=== PATIENT | male | born 1975 | race Caucasian/White ===

== ENCOUNTER 2021-05-11 19:22 | Emergency (ER) | payer SELFPAY ==
[~2021-05-11] VITALS: Ht 180.3 cm; Wt 82.0 kg
[2021-05-11 19:50] LABS: HEMATOCRIT 48.6 % (39.0-50.0); HEMOGLOBIN 16.4 g/dl (14.0-18.0); IMMATURE GRANULOCYTES 0.1 % (0.0-5.0); MEAN CELL VOLUME 100.8 fL CALC (80.0-100.0); MEAN CORPUSCULAR HGB CONC 33.7 g/dL CAL (32.0-36.0); NEUT# 3.04 thou/uL (1.82-7.42); RED BLOOD COUNT 4.82 mill/uL (4.70-6.10); RED CELL DISTRI WIDTH 12.9 % (11.5-15.5)
[2021-05-11 20:09] LABS: ALBUMIN 4.7 g/dL (3.2-5.0); ALKALINE PHOSPHATASE 109 u/l (38-126); ANION GAP 20 (6-22 (CALC)); BILIRUBIN, TOTAL 0.6 mg/dL (0.0-1.4); BUN 6 mg/dL (9-20); BUN/CREATININE RATIO 6 (12-20 (CALC)); CARBON DIOXIDE 20 mmol/l (22-30); CHLORIDE 101 mmol/l (95-108); GFR > 60 ML/MIN (>=60 (CALC)); GFR FOR AFR.AMER. > 60 ML/MIN (>=60 (CALC)); POTASSIUM 3.6 mmol/l (3.5-5.1); SGOT/AST 88 u/l (17-59); SODIUM 138 mmol/l (137-146); TOTAL PROTEIN 8.6 g/dL (6.3-8.2)
[2021-05-11 20:20] LABS: MYOGLOBIN 38 ng/mL (0 - 121)
[2021-05-11 20:34] LABS: URINE BILIRUBIN - DIPSTICK NEGATIVE (NEGATIVE); URINE BLOOD DIPSTICK NEGATIVE (NEGATIVE); URINE COLOR YELLOW; URINE GLUCOSE - DIPSTICK NEGATIVE (NEGATIVE); URINE KETONE NEGATIVE (NEGATIVE); URINE LEUK ESTERASE NEGATIVE (NEGATIVE); URINE PROTEIN - DIPSTICK NEGATIVE (NEG-TRACE); URINE SPECIFIC GRAVITY <=1.005; URINE UROBILINOGEN - DIPSTICK 0.2 E.U./dL (0.2)
[2021-05-11 20:35] LABS: URINE NITRITE - DIPSTICK NEGATIVE (Negative)
[2021-05-11] MEDS ORDERED: PREVACID30 M3 PO (22:12)
[2021-05-11 22:19] VITALS: BP 115/92
== END 2021-05-11 22:25 | disposition home or self-care (01) | DRG 897 ==
LOC: ED 19:22
PROVIDERS: Emergency Medicine
DX: F10.129 Alcohol abuse with intoxication, unspecified (principal)

== ENCOUNTER 2022-12-25 19:02 | Emergency (ER) | payer OTHER ==
[~2022-12-25] VITALS: Ht 180.3 cm; Wt 99.0 kg
[~2022-12-25 19:02] MED LIST: PREVACID30 M3 PO
[2022-12-25 19:09] VITALS: BP 116/69
[2022-12-25 19:16] VITALS: BP 107/61
[2022-12-25 19:30] VITALS: BP 101/61
[2022-12-25 19:32] LABS: BASO% 0.4 % (0-3); HEMATOCRIT 45.6 % (39.0-50.0); HEMOGLOBIN 15.2 g/dl (14.0-18.0); IMMATURE GRANULOCYTES 0.2 % (0.0-5.0); LYMPH% 40.9 % (15-41); MEAN CELL VOLUME 100.2 fL CALC (80.0-100.0); MEAN CORPUSCULAR HGB 33.4 pG CALC (26.0-32.0); MEAN CORPUSCULAR HGB CONC 33.3 g/dL CAL (32.0-36.0); MONO% 14.1 % (2-13); NEUT# 2.16 thou/uL (1.82-7.42); NEUT% 42.4 % (42-76); RED BLOOD COUNT 4.55 mill/uL (4.70-6.10)
[2022-12-25 19:42] LABS: ALBUMIN 4.6 g/dL (3.2-5.0); ALKALINE PHOSPHATASE 71 u/l (38-126); BUN 10 mg/dL (9-20); BUN/CREATININE RATIO 14 (12-20 (CALC)); CARBON DIOXIDE 21 mmol/l (22-30); CHLORIDE 113 mmol/l (95-108); CREATININE 0.8 mg/dL (0.7-1.3); GFR FOR AFR.AMER. > 60 ML/MIN (>=60 (CALC)); GFR OTHER RACES > 60 ML/MIN (>=60 (CALC)); MAGNESIUM 1.9 mg/dL (1.6-2.3); POTASSIUM 3.9 mmol/l (3.5-5.1); SGOT/AST 49 u/l (17-59); TOTAL PROTEIN 7.9 g/dL (6.3-8.2)
[2022-12-25 20:07] LABS: ANION GAP 17 (6-22 (CALC)); SODIUM 147 mmol/l (137-146)
[2022-12-25 20:08] LABS: BILIRUBIN, TOTAL 0.1 mg/dL (0.2-1.3); ETHYL ALCOHOL 446 mg/dl (0-30)
[2022-12-25 20:54] LABS: URINE BILIRUBIN - DIPSTICK NEGATIVE (NEGATIVE); URINE BLOOD DIPSTICK TRACE-INTACT (NEGATIVE); URINE COLOR YELLOW; URINE GLUCOSE - DIPSTICK NEGATIVE (NEGATIVE); URINE KETONE NEGATIVE (NEGATIVE); URINE LEUK ESTERASE NEGATIVE (NEGATIVE); URINE PH 5.5 (4.5-8.0); URINE PROTEIN - DIPSTICK TRACE mg/dL (NEG-TRACE); URINE SPECIFIC GRAVITY <=1.005; URINE UROBILINOGEN - DIPSTICK 0.2 E.U./dL (0.2)
[2022-12-25 20:59] LABS: URINE NITRITE - DIPSTICK NEGATIVE (Negative)
[2022-12-26 02:40] VITALS: BP 101/61
== END 2022-12-26 02:40 | DRG 897 ==
LOC: ED 19:02
PROVIDERS: Family Medicine
DX: F10.129 Alcohol abuse with intoxication, unspecified (principal); Y90.8 Blood alcohol level of 240 mg/100 ml or more; F17.210 Nicotine dependence, cigarettes, uncomplicated

== ENCOUNTER 2023-01-05 22:02 | Emergency (ER) | payer OTHER ==
[~2023-01-05] VITALS: Ht 180.3 cm; Wt 86.0 kg
[2023-01-05 22:08] VITALS: BP 131/92
[2023-01-05 22:16] VITALS: BP 130/90
[2023-01-05 22:30] VITALS: BP 129/92
[2023-01-05 22:45] VITALS: BP 133/94
[2023-01-05 22:53] LABS: BASO% 0.2 % (0-3); EOS% 2.8 % (0-8); HEMOGLOBIN 15.4 g/dl (14.0-18.0); IMMATURE GRANULOCYTES 0.2 % (0.0-5.0); LYMPH% 37.5 % (15-41); MEAN CORPUSCULAR HGB 33.5 pG CALC (26.0-32.0); MEAN CORPUSCULAR HGB CONC 33.5 g/dL CAL (32.0-36.0); MONO% 9.1 % (2-13); NEUT# 2.72 thou/uL (1.82-7.42); NEUT% 50.2 % (42-76); RED BLOOD COUNT 4.6 mill/uL (4.70-6.10); RED CELL DISTRI WIDTH 13.9 % (11.5-15.5)
[2023-01-05 23:00] VITALS: BP 118/82
[2023-01-05 23:10] LABS: ALBUMIN 4.5 g/dL (3.2-5.0); ALKALINE PHOSPHATASE 66 u/l (38-126); BUN 8 mg/dL (9-20); BUN/CREATININE RATIO 12 (12-20 (CALC)); CHLORIDE 105 mmol/l (95-108); CREATININE 0.7 mg/dL (0.7-1.3); GFR FOR AFR.AMER. > 60 ML/MIN (>=60 (CALC)); GFR OTHER RACES > 60 ML/MIN (>=60 (CALC)); POTASSIUM 3.9 mmol/l (3.5-5.1); SODIUM 143 mmol/l (137-146); TOTAL PROTEIN 7.5 g/dL (6.3-8.2)
[2023-01-05 23:15] VITALS: BP 127/89
[2023-01-05 23:16] LABS: ANION GAP 15 (6-22 (CALC)); BILIRUBIN, TOTAL 0.4 mg/dL (0.2-1.3); CARBON DIOXIDE 27 mmol/l (22-30); SGOT/AST 96 u/l (17-59)
[2023-01-05 23:32] LABS: ETHYL ALCOHOL 476 mg/dl (0-30)
[2023-01-06] VITALS (32 sets, daily range): BP systolic 104–129; BP diastolic 66–95
== END 2023-01-06 07:55 | disposition home or self-care (01) | DRG 897 ==
LOC: ED 22:02
PROVIDERS: Emergency Medicine
DX: F10.129 Alcohol abuse with intoxication, unspecified (principal); Y90.8 Blood alcohol level of 240 mg/100 ml or more; F17.210 Nicotine dependence, cigarettes, uncomplicated

== ENCOUNTER 2023-03-14 13:07 | Emergency (ER) | payer SELFPAY ==
[2023-03-14] VITALS (11 sets, daily range): BP systolic 106–125; BP diastolic 47–90
[~2023-03-14] VITALS: Ht 180.3 cm; Wt 84.0 kg
[2023-03-14 13:50] LABS: BASO% 0.3 % (0-3); EOS% 0.5 % (0-8); HEMATOCRIT 41.1 % (39.0-50.0); HEMOGLOBIN 14.2 g/dl (14.0-18.0); IMMATURE GRANULOCYTES 0.3 % (0.0-5.0); MEAN CELL VOLUME 98.8 fL CALC (80.0-100.0); MEAN CORPUSCULAR HGB 34.1 pG CALC (26.0-32.0); MEAN CORPUSCULAR HGB CONC 34.5 g/dL CAL (32.0-36.0); MONO% 12.7 % (2-13); NEUT# 3.28 thou/uL (1.82-7.42); NEUT% 57.2 % (42-76); RED BLOOD COUNT 4.16 mill/uL (4.70-6.10); RED CELL DISTRI WIDTH 14.2 % (11.5-15.5)
[2023-03-14 14:04] LABS: ALBUMIN 4.3 g/dL (3.2-5.0); ANION GAP 18 (6-22 (CALC)); BILIRUBIN, TOTAL 0.5 mg/dL (0.2-1.3); BUN 6 mg/dL (9-20); BUN/CREATININE RATIO 11 (12-20 (CALC)); CARBON DIOXIDE 24 mmol/l (22-30); CHLORIDE 106 mmol/l (95-108); CREATININE 0.6 mg/dL (0.7-1.3); GFR FOR AFR.AMER. > 60 ML/MIN (>=60 (CALC)); GFR OTHER RACES > 60 ML/MIN (>=60 (CALC)); POTASSIUM 3.6 mmol/l (3.5-5.1); SODIUM 144 mmol/l (137-146); TOTAL PROTEIN 6.9 g/dL (6.3-8.2)
[2023-03-14 14:13] LABS: ALKALINE PHOSPHATASE 125 u/l (38-126); SGOT/AST 273 u/l (17-59)
[2023-03-14 14:14] LABS: ETHYL ALCOHOL 580 mg/dl (0-30)
== END 2023-03-14 21:26 | disposition home or self-care (01) | DRG 897 ==
LOC: ED 13:07
PROVIDERS: Family Medicine
DX: F10.129 Alcohol abuse with intoxication, unspecified (principal); Y90.8 Blood alcohol level of 240 mg/100 ml or more; F17.200 Nicotine dependence, unspecified, uncomplicated

== ENCOUNTER 2023-03-20 18:29 | Observation (INO) | payer SELFPAY ==
[2023-03-20] VITALS (20 sets, daily range): BP systolic 105–138; BP diastolic 56–92
[~2023-03-20] VITALS: Ht 180.3 cm; Wt 86.0 kg
--- NOTE | 2023-03-20 18:34 | NUR ---
PATIENT TO ROOM 12 VIA EMS
[2023-03-20 19:08] LABS: BASO% 0.4 % (0-3); EOS% 0.4 % (0-8); HEMATOCRIT 38.6 % (39.0-50.0); HEMOGLOBIN 12.9 g/dl (14.0-18.0); IMMATURE GRANULOCYTES 0.2 % (0.0-5.0); LYMPH% 26.1 % (15-41); MEAN CELL VOLUME 99.7 fL CALC (80.0-100.0); MEAN CORPUSCULAR HGB 33.3 pG CALC (26.0-32.0); MEAN CORPUSCULAR HGB CONC 33.4 g/dL CAL (32.0-36.0); MONO% 14.3 % (2-13); NEUT# 3.2 thou/uL (1.82-7.42); NEUT% 58.6 % (42-76); RED BLOOD COUNT 3.87 mill/uL (4.70-6.10); RED CELL DISTRI WIDTH 14.8 % (11.5-15.5)
[2023-03-20 19:18] LABS: ALBUMIN 4.4 g/dL (3.2-5.0); ALKALINE PHOSPHATASE 146 u/l (38-126); ANION GAP 14 (6-22 (CALC)); BILIRUBIN, TOTAL 0.5 mg/dL (0.2-1.3); BUN 6 mg/dL (9-20); BUN/CREATININE RATIO 9 (12-20 (CALC)); CARBON DIOXIDE 26 mmol/l (22-30); CHLORIDE 108 mmol/l (95-108); CREATININE 0.6 mg/dL (0.7-1.3); GFR FOR AFR.AMER. > 60 ML/MIN (>=60 (CALC)); GFR OTHER RACES > 60 ML/MIN (>=60 (CALC)); POTASSIUM 3.3 mmol/l (3.5-5.1); SGOT/AST 155 u/l (17-59); SODIUM 145 mmol/l (137-146); TOTAL PROTEIN 7.6 g/dL (6.3-8.2)
--- NOTE | 2023-03-20 19:27 | NUR ---
PATIENT IS INTOXICATED BUT COOPERATIVE WITH STAFF. PATIENT FELL AND INJURED HIS LEFT KNEE. BANANA BAG INFUSING AT THIS TIME. P-ATIENT IS IN NO DISTRESS.
[2023-03-20 19:28] LABS: ETHYL ALCOHOL 412 mg/dl (0-30)
--- NOTE | 2023-03-20 20:21 | NUR ---
PATIENT EATING AND TAKING IN FLUIDS. BANANA BAG COMPLETED. PATIENT RESTING.
--- NOTE | 2023-03-20 21:15 | NUR ---
BANANA BAG COMPLETED. SECOND LITER OF IVF INITIATED. PATIENT IN NO DISTRESS.
--- NOTE | 2023-03-20 22:00 | NUR ---
FEDERICO CARROLL GIVEN VERBAL REPORT O0N PATIENT. SHE ASSUMES CARE OF THE PATIENT AT THIS TIME.
--- NOTE | 2023-03-20 23:00 | NUR ---
Reassessment of patient completed. No distress noted.
[2023-03-21] VITALS (55 sets, daily range): BP systolic 98–186; BP diastolic 59–115
--- NOTE | 2023-03-21 | NUR ---
Reassessment of patient completed. No distress noted.
--- NOTE | 2023-03-21 01:00 | NUR ---
Reassessment of patient completed. No distress noted.
[2023-03-21 01:54] LABS: URINE BILIRUBIN - DIPSTICK NEGATIVE (NEGATIVE); URINE BLOOD DIPSTICK NEGATIVE (NEGATIVE); URINE COLOR YELLOW; URINE GLUCOSE - DIPSTICK NEGATIVE (NEGATIVE); URINE KETONE NEGATIVE (NEGATIVE); URINE LEUK ESTERASE NEGATIVE (NEGATIVE); URINE PROTEIN - DIPSTICK TRACE mg/dL (NEG-TRACE); URINE SPECIFIC GRAVITY 1.015; URINE UROBILINOGEN - DIPSTICK 0.2 E.U./dL (0.2)
--- NOTE | 2023-03-21 02:00 | NUR ---
Reassessment of patient completed. No distress noted.
[2023-03-21 02:02] LABS: URINE NITRITE - DIPSTICK NEGATIVE (Negative)
--- NOTE | 2023-03-21 03:00 | NUR ---
Reassessment of patient completed. No distress noted.
--- NOTE | 2023-03-21 04:00 | NUR ---
Reassessment of patient completed. No distress noted.
--- NOTE | 2023-03-21 05:00 | NUR ---
Reassessment of patient completed. No distress noted.
--- NOTE | 2023-03-21 06:10 | NUR ---
PATIENT RESTING WITH EYES CLOSED. O2 SAT DOWN IN MID 80S ON RA. MD NOTIFIED. AND ARRIVES AT BEDSIDE FOR RE EVAL. ADDITIONALL TESTING ORDERED. PATIENT AWAKE AND ALERT, DENIES ANY COMPLAINTS AT PRESENT.
--- NOTE | 2023-03-21 06:21 | NUR ---
RESPIRATORY AT BEDSIDE FOR ABG.
--- NOTE | 2023-03-21 07:00 | NUR ---
BEDSIDE REPORT RECIEVED FROM CARLY CABALLERO
--- NOTE | 2023-03-21 07:15 | NUR ---
PATIENTS IV IN THE RAC FOUND OCCLUDED AND THE IV IN THE LEFT HAND NOT PATENT. NEW IV STARTS INITIATED AND CULTURES COLLECTED PRIOR TO IV ABX ADMIN
--- NOTE | 2023-03-21 07:51 | NUR ---
PATIENT RESTING IN BED WATCHING TV. EDUCATED ON PLAN OF CARE AND ABX. HE UNDERSTANDS
--- NOTE | 2023-03-21 08:30 | NUR ---
CRITICAL RESULT OF 378 ALOCHOL LEVEL RECIEVED AND NOTIFIED MD. 2 RN'S CHECKED PATIENTS ROOM AND BELONGINGS. UPON SEARCHING WE FOUND 2 GATORADE BOTTLES CLEAR IN COLOR AND SMELLING OF ALCOHOL. ITEMS REMOVED, EMPTIED AND THROWN AWAY. MD NOTIFIED OF RESULT AND FINDINGS. PATIENT THEN PROVIDED A BREAKFAST TRAY.
--- NOTE | 2023-03-21 10:27 | NUR ---
ASSUMED CARE OF THE PATIENT AT THIS TIME FROM SUHAS CARROLL. PATIENT IS SLEEPING. V/S STABLE.
--- NOTE | 2023-03-21 15:30 | NUR ---
DR LOVELACE CURRENTLY BEDSIDE WITH PATIENT TO DISCUSSE PPOC AND ANSWER QUESTIONS
--- NOTE | 2023-03-21 15:50 | NUR ---
ASSUMED CARE OF THE PT AT THIS TIME
--- NOTE | 2023-03-21 18:00 | NUR ---
RCD REPORT FROM ED. PT AMBULATED FROM WHEELCHAIR TO BED. PT AMBULATES STANDBY ASSIST. ETOH WITHDRAWAL. NO WITHDRAWAL SYMPTOMS AT THE MOMENT. PT ON RA LUNGS ARE CLEAR. ABRASION ON ELBOW AND KNEE LEFT SIDE. PT A/OX3. FOLLOWS COMMANDS. IV ACCESS IN PLACE. NO COMPLAINTS AT THIS TIME
--- NOTE | 2023-03-21 18:02 | NUR ---
Admission Note Report Given to: GELY CARROLL Transported by: Wheelchair Transported with: Senia Romero IV Location: ICU ROOM 8
--- NOTE | 2023-03-21 18:05 | NUR ---
Pt. rechecked post pain med administration. Pain level (1-10): 0 Pain better/worse:
[2023-03-22] VITALS (28 sets, daily range): BP systolic 134–167; BP diastolic 88–112
--- NOTE | 2023-03-22 00:24 | NUR ---
SLEEPING AND COMFORTABLE. MEDICATATED FOR ANXIETY AND ETOH WITHDRAWAL. BP ELEVATED AND MEDICATED FOR IT. MONITORING.
--- NOTE | 2023-03-22 04:13 | NUR ---
SLEPT ON AND OFF THRU THE NITE. HAS TREMORS AND STATES THAT HE IS ANXIOUS. MEDICATED FOR IT. ALERT AND ORIENTED X 3. URINE OUTPUT WITHIN NORMAL LIMITS. BP SLIGHTLY ELEVATED AND HAS BEING MEDICATED FOR IT.
[2023-03-22 04:22] LABS: HEMATOCRIT 36.7 % (39.0-50.0); HEMOGLOBIN 12.5 g/dl (14.0-18.0); MEAN CELL VOLUME 99.5 fL CALC (80.0-100.0); MEAN CORPUSCULAR HGB 33.9 pG CALC (26.0-32.0); MEAN CORPUSCULAR HGB CONC 34.1 g/dL CAL (32.0-36.0); RED BLOOD COUNT 3.69 mill/uL (4.70-6.10); RED CELL DISTRI WIDTH 14.4 % (11.5-15.5)
[2023-03-22 04:51] LABS: ALBUMIN 3.9 g/dL (3.2-5.0); ALKALINE PHOSPHATASE 168 u/l (38-126); BILIRUBIN, TOTAL 0.7 mg/dL (0.2-1.3); BUN 2 mg/dL (9-20); BUN/CREATININE RATIO 5 (12-20 (CALC)); CARBON DIOXIDE 29 mmol/l (22-30); CHLORIDE 102 mmol/l (95-108); CREATININE 0.5 mg/dL (0.7-1.3); GFR FOR AFR.AMER. > 60 ML/MIN (>=60 (CALC)); GFR OTHER RACES > 60 ML/MIN (>=60 (CALC)); POTASSIUM 3.3 mmol/l (3.5-5.1); SGOT/AST 136 u/l (17-59)
[2023-03-22 05:00] LABS: ANION GAP 8 (6-22 (CALC)); MAGNESIUM 1.3 mg/dL (1.6-2.3); SODIUM 136 mmol/l (137-146)
--- NOTE | 2023-03-22 09:37 | NUR ---
PT SEEN AWAKE, ALERT, TREMOROUS HE SITS IN CHAIR. HE WAS ABLE TO AMBULATE TO BR WITH ASSIST, BM. NO ACUTE DISTRESS, PT PROVIDED ATIVAN AND LIBRIUM PER DTs.
--- NOTE | 2023-03-22 11:04 | NUR ---
PATEINT RESTING IN BED WITH EYES CLOSED. APPEARS TO BE SLEEPING. NO S/S OF PAIN OR DISTRESS. BED IN LOW POSITION WITH UPPER BED RAILS UP AND CALL LIGHT WITHIN REACH.
--- NOTE | 2023-03-22 12:56 | NUR ---
PT WITH DIARRHEA HAS BEEN AMBULATED TO BR AND CLEANED NEEDED. PT PROVIDED LIBRIUM AND ATIVAN AT THIS TIME FOR TREMBLING DUE TO ALCOHOL WITHDRAWAL.
--- NOTE | 2023-03-22 15:42 | NUR ---
PATIENT SITTING UPRIGHT IN HIGH FOWLERS EATING LUNCH. SAYS HE FEELS BETTER. BED IN LOW POSITION WITH UPPER BED RAILS RAISED AND CALL LIGTH WITHIN REACH.
--- NOTE | 2023-03-22 17:04 | NUR ---
PT SEEN WITH EYES CLOSED IN ROOM, RESTING. NO COMPLAINTS, NO DISTRESS NOTED. PT HAS NOT HAD ANY MORE DIARRHEA THIS MORNING, WHEN HE WENT 3-4 TIMES.
--- NOTE | 2023-03-22 20:00 | NUR ---
PT RESTING IN BED WITH EYES CLOSED. VSS ON MONITOR. PT NAD. PT HAS NO REQUESTS AT THIS TIME.
--- NOTE | 2023-03-22 22:00 | NUR ---
PT REMAINS RESTING WITH EYES CLOSED AT THIS TIME, VSS, NAD.
[2023-03-23] VITALS (25 sets, daily range): BP systolic 110–148; BP diastolic 81–106
--- NOTE | 2023-03-23 | NUR ---
PT UP TO BSC WITH INCONTINENT EPISODE OF URINE AND DIARRHEA. PT WANTED TO WALK TO BATHROOM BUT HE WAS EXTREMELY UNSTEADY ON HIS FEET. MADE PT USE BSC DUE TO THE HIGH RISK OF FALLING. BRICK VENEER MAKER AND MYSELF CHANGED BEDDING, PT FINISHED WITH BSC, CLEANED HIM UP WELL AND PUT PT BACK IN BED. AT THIS TIME, IT WAS TIME FOR HIS ATIVAN PER CIWA SCALE. PT IV WAS INFILTRATED. SO NEW 18G PLACED IN ASIA AND WRAPPED LIGHTLY WITH COBAN TO PREVENT PT FROM DISLODGING IV. OLD IV REMOVED. PT WAS NAUSEATED SO IV ZOFRAN GIVEN AND THEN ATIVAN. VSS, PT NAD AT THIS TIME. PT DRANK A CRANBERRY COCKTAIL JUICE AFTER MEDICATION GIVEN.
--- NOTE | 2023-03-23 02:00 | NUR ---
PT RESTING COMFORTABLY. BED ALARM REMAINS ON, CALL LIGHT WITHIN REACH. VSS, NAD.
--- NOTE | 2023-03-23 04:00 | NUR ---
PT AWAKE FOR LABS AND CIWA OF 12 AT THIS TIME. MEDICATION GAVE PER CIWA. VSS. PT NAD.
[2023-03-23 04:16] LABS: HEMATOCRIT 38.8 % (39.0-50.0); HEMOGLOBIN 13.1 g/dl (14.0-18.0); MEAN CORPUSCULAR HGB 33.8 pG CALC (26.0-32.0); MEAN CORPUSCULAR HGB CONC 33.8 g/dL CAL (32.0-36.0); RED BLOOD COUNT 3.88 mill/uL (4.70-6.10); RED CELL DISTRI WIDTH 14.3 % (11.5-15.5)
[2023-03-23 04:43] LABS: ALKALINE PHOSPHATASE 162 u/l (38-126); ANION GAP 10 (6-22 (CALC)); BILIRUBIN, TOTAL 0.9 mg/dL (0.2-1.3); BUN 5 mg/dL (9-20); BUN/CREATININE RATIO 9 (12-20 (CALC)); CARBON DIOXIDE 26 mmol/l (22-30); CHLORIDE 104 mmol/l (95-108); CREATININE 0.6 mg/dL (0.7-1.3); GFR FOR AFR.AMER. > 60 ML/MIN (>=60 (CALC)); GFR OTHER RACES > 60 ML/MIN (>=60 (CALC)); POTASSIUM 3.3 mmol/l (3.5-5.1); SGOT/AST 108 u/l (17-59); SODIUM 136 mmol/l (137-146); TOTAL PROTEIN 7.2 g/dL (6.3-8.2)
[2023-03-23 04:44] LABS: MAGNESIUM 2.1 mg/dL (1.6-2.3)
--- NOTE | 2023-03-23 06:00 | NUR ---
PT REMAINS RESTING WITH EYES CLOSED, VSS, NAD.
--- NOTE | 2023-03-23 08:00 | NUR ---
PT SEEN AT REST IN THE BED, EYES CLOSED. PT IS APPROPRIATE WHEN AWAKE. PT CONTINUES WITH TREMORS, ALTHOUGH SLIGHT.
--- NOTE | 2023-03-23 11:00 | NUR ---
PT WITH DIARRHEA AGAIN TODAY. HE REQUIRES MAX ASSIST FOR BALANCE WHEN GOING TO BR. PT STATES THAT HE FEELS LIKE HE IS GETTING BETTER. TREMORS MINIMAL.
--- NOTE | 2023-03-23 15:02 | NUR ---
PT AMBULATES TO BR WITH STANDBY ASSIST, STATES THAT HIS APPETITE IS COMING BACK.
--- NOTE | 2023-03-23 19:15 | NUR ---
awake. denies acute distress. has obvious tremors. monitor technician shows sinus rhythm. #18 giovanni saline lock. po fluids encouraged & nenita well. voids per urinal. fall precautions cont. librium 25mg po given for tremors.
--- NOTE | 2023-03-23 20:10 | NUR ---
ativan 1mg ivp given for c/o anxiety. food given per request.
--- NOTE | 2023-03-23 23:00 | NUR ---
librium 25mg po per request for tremors.
[2023-03-24] VITALS (18 sets, daily range): BP systolic 122–155; BP diastolic 85–107
--- NOTE | 2023-03-24 00:30 | NUR ---
ativan 1mg iv given for anxiety.
--- NOTE | 2023-03-24 02:00 | NUR ---
eyes closed. no distress. compliance monitor shows sinus rhythm.
--- NOTE | 2023-03-24 05:15 | NUR ---
librium 25mg po per request for tremors.
--- NOTE | 2023-03-24 05:30 | NUR ---
lab here. blood drawn.
[2023-03-24 05:56] LABS: HEMATOCRIT 38.2 % (39.0-50.0); HEMOGLOBIN 12.8 g/dl (14.0-18.0); MEAN CELL VOLUME 101.6 fL CALC (80.0-100.0); MEAN CORPUSCULAR HGB CONC 33.5 g/dL CAL (32.0-36.0); RED BLOOD COUNT 3.76 mill/uL (4.70-6.10); RED CELL DISTRI WIDTH 14.3 % (11.5-15.5)
[2023-03-24 06:02] LABS: ALBUMIN 3.7 g/dL (3.2-5.0); ALKALINE PHOSPHATASE 140 u/l (38-126); ANION GAP 12 (6-22 (CALC)); BILIRUBIN, TOTAL 0.8 mg/dL (0.2-1.3); BUN 12 mg/dL (9-20); BUN/CREATININE RATIO 20 (12-20 (CALC)); CARBON DIOXIDE 23 mmol/l (22-30); CHLORIDE 106 mmol/l (95-108); CREATININE 0.6 mg/dL (0.7-1.3); GFR FOR AFR.AMER. > 60 ML/MIN (>=60 (CALC)); GFR OTHER RACES > 60 ML/MIN (>=60 (CALC)); MAGNESIUM 1.8 mg/dL (1.6-2.3); SGOT/AST 102 u/l (17-59); SODIUM 137 mmol/l (137-146); TOTAL PROTEIN 6.4 g/dL (6.3-8.2)
[2023-03-24 06:08] LABS: POTASSIUM 4.2 mmol/l (3.5-5.1)
--- NOTE | 2023-03-24 06:25 | NUR ---
ATIVAN 1MG IV PER REQUEST FOR ANXIETY.
--- NOTE | 2023-03-24 08:00 | NUR ---
[facility] PT IS IN BED RESTING. PT ON RA. LUNGS ARE CLEAR. SKIN HAS SCRAPES FROM INTOXICATED FALL BEFORE ADMISSION. PT HAS A CIWA OF 4. PT IS A/OX3 WITH ONLY STANDBY ASSIST. PT USES URINAL. SUPERVISOR CONCRETE STONE FINISHING IS STRONG. PT DENIES ANY COMPLAINTS. PLAN IS PT TO WORK WITH PT TODAY. PULSES STRONG. PT FEEDS SELF AND TURNS SELF.
--- NOTE | 2023-03-24 10:00 | NUR ---
PT CURRENTLY RESTING IN BED AT THE MOMENT. RISE AND FALL OF CHEST NOTED. NO OTHER COMPLAINTS AT THIS TIME.
--- NOTE | 2023-03-24 12:00 | NUR ---
PT IS LAYING IN BED WATCHING TV. PT STATES HE IS "READY TO GO HOME"
--- NOTE | 2023-03-24 14:40 | NUR ---
PT ARRIVED TO MS AT 1426 REPORT RECIEVED FROM GELY CARROLL. PT A/OX3 NEEDS REINFORCEMENT USING CALL LIGHT. PT UNSTEADY ON FEET ASSIST X1 BED ALARM ACTIVATED . PT REQUESTED TO SIT NEXT TO WINDOW FOR VIEW OF THE OUTSIDE. IV NOTED. PT CHAIR ALARM ACTIVATED ONCE HELPED INTO CHAIR. PT REQUEST USE BATHROOM FOR BM . HEART RYTHYM ONTELE. RESPIRATIONS ROOM AIR. ALL SAFETY PRECAUTIONS IN PLACE CALL LIGHT IN REACH.
--- NOTE | 2023-03-24 16:05 | NUR ---
PT REQUESTED BEVERAGE ,BEVERAGE PROVIDED. PT STATED BM TODAY NORMAL. PT DENIES ADDITIONAL NEEDS AT THE TIME.
--- NOTE | 2023-03-24 17:43 | NUR ---
no need for fluids per MD.
--- NOTE | 2023-03-24 20:13 | NUR ---
RECIEVED BEDSIDE REPORT. PT RESTING IN SEMI FOWLERS POSITION. PT A/OX3. RESPIRATIONS EVEN AND UNLABORED ON ROOM AIR. LUNG SOUNDS CLEAR. HEART RYTHM NORMAL. BOWEL SOUNDS ACTIVE. LBM 03/24/23. SCABBED AREA NOTED THROUGHOUT BODY.PT REQUEST TO SHOWER. ASSISTED TO SHOWER. NEW LINENING PROVIDED. ASSISTED BACK INTO BED. CIWA RESULTING IN 9, MEDICATED PER EMAR. PT DENIES OF ANY PAINS. PT ORIENTED TO ROOM AND CALL LIGHT SYSTEM. DISCUSSED SAFTEY PRECAUTIONS, PT VERBALIZED UNDERSTANDING. CALL LIGHT IN REACH WITH BED ALARM ACTIVE.
--- NOTE | 2023-03-24 21:50 | NUR ---
BED ALARM ACTIVED WHILE SPORTS SPECIALIST WAS IN OTHER ROOM ASSISTING WITH SUNDEEP LIFT . SPORTS SPECIALIST RESPONDED PROMPTLY POSSIBLE. PT SITTING ON SIDE OF BED WHILE ENTERING ROOM. PT STOOD UP AND TOOK A COUPLE STEPS BEFORE LOOSING BALANCE AND TEMPLING TO HIS RIGHT WHILE ATTEMPTING TO PUT ON GLOVES. SPORTS SPECIALIST WAS ABLE TO COMPLETE AN ASSISTED FALL. ONLY INJURY NOTED IS A SKINNED KNEE. SAFTEY PRECAUTIONS WAS DICUSSED WITH PT MULTIPLE TIMES IN THE BEGINING OF THE SHIFT. PT REFUSES TO CALL BEFORE ATTEMPTING TO GET OUT OF BED AND SETTING ALARM. 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 PT INFORMED THAT THERE WAS NO SMOKING. PT ASSURED SPORTS SPECIALIST THAT HE JUST HAD IT IN HIS HAND. PT INFORMED TO PULL CALL LIGHT BEFORE GETTING OFF TOILET, SPORTS SPECIALIST REMAINED CLOSED BY TO ASSURE SAFTEY.HOWEVER, PT DID NOT PULL CALL LIGHT AND PROCEED TO GET OFF TOILET BY HIMSELF AFTER INSTRUCTED ON TO. PT ASSISTED BACK TO BED. PT EDUCATED AGAIN ON SAFTEY PRECAUTIONS AND CALLING BEFORE TO ALLOW STAFF TO RESPOND AND AVOID RUSHING . PT INFORMED THAT IF HE COULD NOT FOLLOW THESE PRECAUTIONS HE WOULD HAVE TO USE BSC TO REDUCE FALL RISKS. PT VERBALIZED UNDERSTANDING. PT REMAINS RESTING IN SEMI FOWLERS POSITION. REMAINS A/OX3. PT DENIES OF ANY PAINS OR DISCOMFORTS. ALL SAFTEY PRECAUTIONS IN PLACE WITH CALL LIGHT IN REACH. BED ALARM ACTIVE.
[2023-03-25] VITALS (11 sets, daily range): BP systolic 110–140; BP diastolic 79–99
--- NOTE | 2023-03-25 00:15 | NUR ---
PT RESTING IN SEMI FOWLERS POSITION.APPEARS ANXIOUS.RESPIRATIONS EVEN AND UNLABORED ON ROOM AIR. TELE MONITORING IN PLACE. CIWA 8. PT C/O OF UNABLE TO SLEEP. PT DENIES OF ANY ADDITIONAL NEEDS. ALL SAFTEY PRECAUTIONS ARE IN PLACE WITH CALL LIGHT IN REACH. BED ALARM ACTIVE.
--- NOTE | 2023-03-25 04:15 | NUR ---
PT RESTING IN SEMI FOWLERS POSITION. RESPIRATIONS EVEN AND UNLABORED ON ROOM AIR. TELE MONITORING IN PLACE. #18G ASIA NOTED. PT DENIES OF ANY NEEDS. ALL SAFETY PRECAUTIONS ARE IN PLACE WITH CALL LIGHT IN REACH. BED ALARM ACTIVE
--- NOTE | 2023-03-25 06:34 | NUR ---
PT REQUESTING ATIVAN AT THIS TIME. PT DOES NOT APPEAR AGGITATED. PT EDUCATED THAT USE IS ONLY FOR AGGITATION. PT STATES "I CAN GET AGGITATED." PT INFORMED THAT IT IS NOT AVAILABLE AT THIS TIME. CIWA REMAINS AT 5.
--- NOTE | 2023-03-25 08:15 | NUR ---
PERFORMED BEDSIDE REPORT WITH BROKERAGE BRANCH MANAGER NURSE. PT TRYING TO GET OUT OF BED WIHTOUT USING CALL LIGHT, BED ALARM GOING OFF. ASSISTED PT WITH STANDING AND USING WALKER, PT HAD MILD UNSTEADY GAIT TO RESTROOM. PT WAS ABLE TO HAVE BOWEL MOVEMENT. ASSISTED WITH AMBULATING TO CHAIR. STRIPPED AND REMADE PT BED. ENFORCED PT TO USE CALL LIGHT FOR ASSISTANCE AND NOT GET UP ON OWN. ASSISTED PT WITH GETTING BACK INTO BED. BED ALARM ON, MONITOR IS ON. PT DENIES ANY PAIN AT THIS TIME. CALL LIGHT WITHIN REACH AND SAFETY PRECAUTIONS IN PLACE.
--- NOTE | 2023-03-25 09:39 | NUR ---
patient ambulated down 60's hallway, and back to room with staff assistance.
--- NOTE | 2023-03-25 12:07 | NUR ---
PT SITTING UP ON SIDE OF THE BED, EATING LUNCH. BED ALARM ON AND MONITOR IN PLACE. CALL LIGHT WITHIN REACH AND SAFETY PRECAUTIONS IN PLACE.
--- NOTE | 2023-03-25 17:26 | NUR ---
ASSITED PT WITH GETTING OUT OF BED AND WALKING THE EDWARDS. PT USED WALKER. GAIT WAS SLIGHTLY UNSTEADY. AMBULATED BACK TO ROOM AND LAYING IN BED NOW. DENIES ANY PAIN. CALL LIGHT WITHIN REACH. MONITOR IN PLACE. SAFETY PRECAUTIONS IN PLACE.
--- NOTE | 2023-03-25 19:29 | NUR ---
RECEIVED BEDSIDE REPORT AT START OF SHIFT. PT SITTING UP IN BED, ALERT AND ORIENTED WATCHING TV. NO C/O OFFERED. BEDALARM SPORTS MARKETING INTERNS[employer] LIGHT IN REACH.
--- NOTE | 2023-03-26 03:15 | NUR ---
PT SLEEPING WELL. NO S/S OF ETOH WITHDRAWAL. WALE DIET AND FLUIDS WELL. ON TELE NSR 94.
[2023-03-26 04:22] VITALS: BP 112/75
[2023-03-26 05:56] LABS: HEMATOCRIT 38.5 % (39.0-50.0); HEMOGLOBIN 12.8 g/dl (14.0-18.0); MEAN CELL VOLUME 102.7 fL CALC (80.0-100.0); MEAN CORPUSCULAR HGB 34.1 pG CALC (26.0-32.0); MEAN CORPUSCULAR HGB CONC 33.2 g/dL CAL (32.0-36.0); RED BLOOD COUNT 3.75 mill/uL (4.70-6.10); RED CELL DISTRI WIDTH 14.4 % (11.5-15.5)
--- NOTE | 2023-03-26 06:11 | NUR ---
PT SLEPT WELL ALL SHIFT. NO C/O OFFERED. ON TELE NSR. BED ALARM MANAGER OF PLANNING LIGHT IN REACH
[2023-03-26 06:20] LABS: ALKALINE PHOSPHATASE 138 u/l (38-126); ANION GAP 12 (6-22 (CALC)); BILIRUBIN, TOTAL 0.6 mg/dL (0.2-1.3); BUN 13 mg/dL (9-20); BUN/CREATININE RATIO 18 (12-20 (CALC)); CARBON DIOXIDE 24 mmol/l (22-30); CHLORIDE 106 mmol/l (95-108); CREATININE 0.7 mg/dL (0.7-1.3); GFR FOR AFR.AMER. > 60 ML/MIN (>=60 (CALC)); GFR OTHER RACES > 60 ML/MIN (>=60 (CALC)); MAGNESIUM 1.9 mg/dL (1.6-2.3); POTASSIUM 3.7 mmol/l (3.5-5.1); SGOT/AST 131 u/l (17-59); SODIUM 139 mmol/l (137-146); TOTAL PROTEIN 7.3 g/dL (6.3-8.2)
[2023-03-26 08:17] VITALS: BP 120/84
[2023-03-26 11:36] VITALS: BP 120/84
--- NOTE | 2023-03-26 12:00 | NUR ---
SITTING UP IN BED STABLE, NO COMPLAINS
[2023-03-26 16:11] VITALS: BP 111/74
[2023-03-26 19:14] VITALS: BP 117/79
--- NOTE | 2023-03-26 22:30 | NUR ---
PT IN BED WATCING TV. SHIFT ASSESMENT COMPLETED. NO S/S OF DISTRESS NOTED. CIWA IS 1. BREATHING IS EVEN AND UNLABORED. DENIES PAOIN OR DICOMFORT. NO NEEDS OR CONCERN VOICED AT THIS TIME. CALL LIGHT IN REACH AND BED IN LOWEST POSITION. BED ALARM ON.
[2023-03-27 00:01] VITALS: BP 116/79
--- NOTE | 2023-03-27 01:00 | NUR ---
PT IN BED RESTING WITH EYES CLOSED BREATHING IS EVEN AND UNLABORED. NO S/S OF DISTRESS NOTED. CALL LIGHT IN REACH AND BED IN LOWEST POSITION.
--- NOTE | 2023-03-27 03:51 | NUR ---
PT IN BED RESTING WITH EYES CLOSED. BREATHING IS EVEN AND UNLABORED. NO S/S OF DISTRESS NOTED. CALL LIGHT IN REACH AND BED IN LOWEST POSITION.
[2023-03-27 04:20] VITALS: BP 107/73
[2023-03-27 06:46] VITALS: BP 118/88
--- NOTE | 2023-03-27 08:00 | NUR ---
PT IN BED WITH HOB UP AWAKE, ALERT AND ORIENTED X3. PT HAS NO C/O PAIN AT THIS TIME. PT HAS NO S/SX OF ALCOHOL WITHDRAWAL, CWA NEGATIVE ON ASSESSMENT. PT HAS TELE ON WITH ALL LEADS ATTACHED. PT LUNGS CLEAR , BS ACTIVE. PT AMBULATES WELL TO BATHROOM FOR TOILETING NEEDS. IV SITE TO ASIA CLEAN AND INTACT. PT HAS CALL LIGHT WITHIN REACH AND ALL SAFETY MEASURES IN PLACE AT THIS TIME.
--- NOTE | 2023-03-27 10:07 | NUR ---
Discharge instructions given. Patient verbalizes understanding of same. Discharged in stable condition via Wheelchair to Home with staff. All belongings sent with pt.
== END 2023-03-27 10:08 | disposition home or self-care (01) | DRG 896 ==
LOC: ED 18:29 → ICU 03-21 16:48 → MS2 03-21 16:48
PROVIDERS: Family Medicine; ADMIT Internal Medicine; ATTEND Internal Medicine
PROC: 3E0234Z Introduction of Serum, Toxoid and Vaccine into Muscle, Percutaneous Approach (ICD-10-PCS; principal; 2023-03-23)
DX: F10.239 Alcohol dependence with withdrawal, unspecified (principal); J18.9 Pneumonia, unspecified organism; F10.229 Alcohol dependence with intoxication, unspecified; Y90.8 Blood alcohol level of 240 mg/100 ml or more; K70.10 Alcoholic hepatitis without ascites; E83.42 Hypomagnesemia; E87.6 Hypokalemia; F17.210 Nicotine dependence, cigarettes, uncomplicated; T14.8XXA Other injury of unspecified body region, initial encounter; W19.XXXA Unspecified fall, initial encounter; Y92.410 Unspecified street and highway as the place of occurrence of the external cause; Z23 Encounter for immunization; Z59.00 Homelessness unspecified; Z20.822 Contact with and (suspected) exposure to COVID-19
CPT/HCPCS: G0378; J1650; J2060; J3475; Q9967